=== PATIENT | female | born 1990 | race Caucasian/White ===

== ENCOUNTER 2018-12-09 00:36 | Emergency (ER) | payer BC ==
[~2018-12-09] VITALS: Ht 157.5 cm; Wt 67.6 kg
[2018-12-09 00:46] VITALS: Ht 157.5 cm; Wt 67.6 kg
[2018-12-09 01:59] LABS: CALCIUM 8.9 mg/dL (8.5-10.1); CARBON DIOXIDE 24.5 mmol/L (21-32); CHLORIDE SERUM 104 mmol/L (98-107); CREATININE SERUM 0.5 mg/dL (0.6-1.0); GFR1 > 60 mL/min; GLUCOSE SERUM 101 mg/dL (74-106); SODIUM SERUM 138 mmol/L (136-145)
[2018-12-09 02:01] LABS: AMPHETAMINE QUAL UR NONE DETECTED (See below)
[2018-12-09 02:13] LABS: ALBUMIN 4.2 g/dL (3.4-5.0); ALKALINE PHOSPHATASE 69 U/L (46-116); ALT/SGPT 19 U/L (14-59); AST/SGOT 40 U/L (15-37); BILIRUBIN TOTAL 0.4 mg/dL (0.20-1.00); POTASSIUM SERUM 4.8 mmol/L (3.5-5.1); T4(THYROXINE) 6.8 ug/dL (4.7-13.3); TOTAL PROTEIN, SERUM 7.8 g/dL (6.4-8.2)
[2018-12-09 02:32] LABS: BASOPHIL % 0.8 % (0-2); PLATELET COUNT 259 x10^3mcL (130-400); RED CELL DISTRIBUTION WIDTH 13.3 % (11.5-14.5)
[2018-12-09 03:12] VITALS: BP 143/77
== END 2018-12-09 03:12 | disposition home or self-care (01) ==
LOC: ED 00:36
PROVIDERS: Emergency Medicine
DX: F41.9 Anxiety disorder, unspecified (principal); F32.9 Major depressive disorder, single episode, unspecified
CPT/HCPCS: G0480; J1885; J2405; J7030

== ENCOUNTER 2020-06-10 18:44 | Emergency (ER) | payer BC ==
[~2020-06-10] VITALS: Ht 160 cm; Wt 62.6 kg
[2020-06-10 18:45] VITALS: Ht 160 cm; Wt 62.6 kg
[2020-06-10 19:23] VITALS: BP 133/95
== END 2020-06-10 19:23 | disposition home or self-care (01) ==
LOC: ED 18:44
DX: B34.9 Viral infection, unspecified (principal); G43.909 Migraine, unspecified, not intractable, without status migrainosus; Z20.828 Contact with and (suspected) exposure to other viral communicable diseases
CPT/HCPCS: U0003